=== PATIENT | female | born 1960 | race Caucasian/White ===

== ENCOUNTER 2016-06-28 07:16 | Outpatient (CLI) | payer OTHER | END 2016-06-28 07:17 | disposition home or self-care (01) | DX: Z00.00 Encounter for general adult medical examination without abnormal findings (principal); E55.9 Vitamin D deficiency, unspecified; E78.5 Hyperlipidemia, unspecified ==

== ENCOUNTER 2018-07-02 11:13 | Outpatient (CLI) | payer OTHER ==
--- NOTE | 2018-07-03 09:32 | Mammography Report ---
Reason: Annual Screening Procedure Date: 07/02/2018 Accession Number: [id number] / [id number] Procedure: AWILDA - Screening Mammo Impl w/Velasquez CPT Code: FULL RESULT: EXAM: Screening Mammo Impl w/Velasquez DATE: 07/02/2018 12:06 PM CLINICAL HISTORY: Screening encounter. Family history of breast cancer in the father around the age of 23. History of silicone breast implants around 2003. TECHNIQUE: Bilateral CC and MLO views were obtained in standard and implant displaced fashion. COMPARISON: None FINDINGS: The breasts demonstrate scattered fibroglandular densities bilaterally. Bilateral breast implants are identified, typically benign. No suspicious masses, clustered microcalcifications, or regions of architectural distortion are identified. IMPRESSION: Benign findings RECOMMENDATION: Routine annual screening unless otherwise clinically indicated. BIRADS CATEGORY 2: Benign findings STANDARD QUALIFYING STATEMENTS: 1. This examination was not reviewed with the aid of Computer-Aided Detection (CAD). 2. A negative or benign imaging report should not delay biopsy if clinically suspicious findings are present. Consider surgical consultation if warrented. More than 5% of cancers are not identified by imaging. 3. Dense breasts may obscure an underlying neoplasm. 4. This examination was reviewed with the aid of 3D breast imaging (tomosynthesis).
== END 2018-07-02 11:14 | disposition home or self-care (01) ==
LOC: DI 11:13
PROVIDERS: ATTEND Nurse Practitioner Family
DX: Z12.31 Encounter for screening mammogram for malignant neoplasm of breast (principal); Z98.82 Breast implant status; Z80.3 Family history of malignant neoplasm of breast
CPT/HCPCS: 77063; 77067

== ENCOUNTER 2018-10-30 09:03 | Outpatient (CLI) | payer OTHER ==
[2018-10-30] MEDS ORDERED: GADOBUTROL 7.5 MMOL/7.5 ML VIAL ONE (10:06)
[2018-10-30] MEDS ORDERED: GADOBUTROL 7.5 MMOL/7.5 ML VIAL IVP ONE (10:55)
--- NOTE | 2018-10-31 09:04 | MRI Report ---
Reason: LOCALIZED SWELLING, MASS AND LUMP,PAIN IN LEFT FOR Procedure Date: 10/30/2018 Accession Number: [id number] / [id number] Procedure: MRI - Forearm LT W/WO CPT Code: FULL RESULT: EXAM: LEFT FOREARM MRI WITHOUT AND WITH CONTRAST EXAM DATE: 10/30/2018 11:14 AM. CLINICAL HISTORY: Localized swelling, mass and lump, pain in left forearm. COMPARISON: None. TECHNIQUE: Multiplanar, multisequence T1-weighted and fluid-sensitive sequences of the forearm before and after administration of intravenous contrast. IV contrast: 6 mL Gadavist. Other: None. FINDINGS: Bones: Visualized marrow signal appears normal. No evidence of acute fracture or stress reaction. No destructive bone lesion. Soft tissues: Within the deep anterior soft tissues of the mid forearm there is a solid, well-circumscribed intermediate T1, high T2 signal enhancing mass located between the flexor carpi ulnaris and flexor digitorum superficialis muscles measuring 1.3 x 1.5 cm transverse and 2.2 cm proximal to distal. The posterior margin of the mass abuts the underlying flexor digitorum profundus muscle. Signal within the adjacent musculature appears normal. No additional masses are identified within the field of view. Musculotendinous structures otherwise appear intact. Subcutaneous tissues unremarkable. IMPRESSION: 1. Solid enhancing 1.3 x 1.5 x 2.2 cm soft tissue mass between the flexor carpi ulnaris and flexor digitorum superficialis. Differential considerations include a peripheral nerve sheath tumor such as schwannoma or neurofibroma. Other differential considerations include soft tissue sarcoma or metastatic lesion. RADIA
== END 2018-10-30 09:04 | disposition home or self-care (01) ==
LOC: DI 09:03
PROVIDERS: ATTEND Nurse Practitioner Family
DX: M79.89 Other specified soft tissue disorders (principal); R22.32 Localized swelling, mass and lump, left upper limb; M79.632 Pain in left forearm
CPT/HCPCS: 73220; A9585

== ENCOUNTER 2019-03-05 07:30 | Outpatient (CLI) | payer OTHER ==
[2019-03-05 08:35] LABS: BASOPHILS % (AUTO) 0.6 %; EOSINOPHILS % (AUTO) 1.2 %; HGB - HEMOGLOBIN 13.8 g/dL (12.0-16.0); LYMPHOCYTES # (AUTO) 1.4 10^3/uL (1.5-3.5); LYMPHOCYTES % (AUTO) 40.1 %; MEAN CORPUSCULAR HEMOGLOBIN 31.7 pg (27.0-31.0); MEAN CORPUSCULAR HGB CONC 33.6 g/dL (32.0-36.0); MEAN CORPUSCULAR VOLUME 94.3 fL (81.0-99.0); MEAN PLATELET VOLUME 10.7 fL (7.9-10.8); MONOCYTES # (AUTO) 0.3 10^3/uL (0.0-1.0); MONOCYTES % (AUTO) 8.2 %; NEUTROPHILS # (AUTO) 1.7 10^3/uL (1.5-6.6); NEUTROPHILS % (AUTO) 49.6 %; PLT - PLATELET COUNT 183 10^3/uL (130-450); RED BLOOD COUNT 4.36 10^6/uL (4.20-5.40); RED CELL DISTRIBUTION WIDTH 13.1 % (12.0-15.0); WHITE BLOOD COUNT 3.4 x10^3/uL (4.8-10.8)
[2019-03-05 08:52] LABS: ALBUMIN 4.2 g/dL (3.2-5.5); ALBUMIN/GLOBULIN RATIO 1.5 (1.0-2.2); ALKALINE PHOSPHATASE 43 IU/L (42-121); ALT ALANINE AMINOTRANSFERASE 25 IU/L (10-60); AST ASPARTATE AMINOTRANSFERASE 28 IU/L (10-42); BILIRUBIN,TOTAL 0.8 mg/dL (0.2-1.0); BUN - BLOOD UREA NITROGEN 11 mg/dL (6-20); CALCIUM 8.7 mg/dL (8.5-10.3); CARBON DIOXIDE - CO2 28 mmol/L (21-32); CHLORIDE 97 mmol/L (101-111); CHOL/HDL RATIO 4.3 (<4.4); CHOLESTEROL 240 mg/dL; CREATININE 0.6 mg/dL (0.4-1.0); GFR - MDRD 102 (>89); GLUCOSE 99 mg/dL (70-100); HDL CHOLESTEROL 56 mg/dL; LDL CHOLESTEROL,CALCULATED 167 mg/dL; SODIUM 132 mmol/L (135-145); VLDL CHOLESTEROL 17 mg/dL
[2019-03-05 08:55] LABS: HB2 TOTAL 13.2 g/dL; HEMOGLOBIN A1C 0.55 g/dL
== END 2019-03-05 07:31 | disposition home or self-care (01) ==
LOC: RT 07:30
PROVIDERS: ATTEND Nurse Practitioner Family
DX: Z00.00 Encounter for general adult medical examination without abnormal findings (principal); Z01.818 Encounter for other preprocedural examination; E55.9 Vitamin D deficiency, unspecified; E78.5 Hyperlipidemia, unspecified
CPT/HCPCS: 36415; 80053; 80061; 82306; 82728; 83036; 83721; 85025; 85610; 93005

== ENCOUNTER 2019-03-06 10:27 | Outpatient (CLI) | payer OTHER | END 2019-03-06 10:28 | disposition home or self-care (01) | LOC: RT 10:27 | PROVIDERS: ATTEND Nurse Practitioner Family | DX: Z01.810 Encounter for preprocedural cardiovascular examination (principal) | CPT/HCPCS: 93005 ==

== ENCOUNTER 2019-06-22 09:37 | Outpatient (CLI) | payer OTHER ==
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
== END 2019-06-22 09:38 | disposition home or self-care (01) ==
LOC: DI 09:37
PROVIDERS: ATTEND Nurse Practitioner Family
DX: R05 Cough (principal); R91.8 Other nonspecific abnormal finding of lung field; Z77.22 Contact with and (suspected) exposure to environmental tobacco smoke (acute) (chronic)
CPT/HCPCS: 71046

== ENCOUNTER 2019-07-02 11:57 | Outpatient (CLI) | payer OTHER ==
--- NOTE | 2019-07-03 16:31 | CT Report ---
Reason: COUGH, SOLITARY PULMONARY NODULE Procedure Date: 07/02/2019 Accession Number: [id number] / [id number] Procedure: CT - CHEST WO CPT Code: Final Report FULL RESULT: EXAM: CT CHEST EXAM DATE: 07/02/2019 12:42 PM. CLINICAL HISTORY: Chronic cough x2 months. Right lung nodule seen on x-ray. COMPARISONS: CHEST 2 VIEW 06/22/2019 9:54 AM. TECHNIQUE: Routine helical CT imaging was performed through the chest. IV contrast: None. Reconstructions: Coronal and sagittal. In accordance with CT protocol optimization, one or more of the following dose reduction techniques were utilized for this exam: automated exposure control, adjustment of mA and/or KV based on patient size, or use of iterative reconstructive technique. FINDINGS: Thyroid Gland: Unremarkable as visualized. Lungs/Pleura: Mild subpleural scarring in the posterior right apex (4/44 through 53) likely corresponding to the nodular opacity seen on recent chest radiograph. Linear subpleural scarring or atelectasis in the anteroinferior right middle lobe. Small area of ill-defined peribronchovascular groundglass opacities in the posterior right lower lobe (4/222). No pleural effusion. Heart and Great Vessels: Heart size is normal. No pericardial effusion. No aortic aneurysm. Thoracic Lymph Nodes: No adenopathy. Visualized Upper Abdomen: Unremarkable. Bones: Mild degenerative changes in the lower thoracic spine. No acute bony abnormality. Other: Bilateral breast implants. IMPRESSION: 1. Small area of ill-defined peribronchial vascular ground glass opacities in the posterior right lower lobe, appearance suggesting endobronchial inflammatory/infectious process. 2. Mild subpleural scarring in the posterior right apex likely corresponding to the nodular opacity seen on recent chest radiograph. RADIA
== END 2019-07-02 11:58 | disposition home or self-care (01) ==
LOC: DI 11:57
PROVIDERS: ATTEND Nurse Practitioner Family
DX: R91.1 Solitary pulmonary nodule (principal); R05 Cough; R91.8 Other nonspecific abnormal finding of lung field
CPT/HCPCS: 71250

== ENCOUNTER 2020-08-30 10:15 | Outpatient (CLI) | payer OTHER ==
--- NOTE | 2020-09-01 13:10 | Mammography Report ---
BILATERAL DIGITAL SCREENING MAMMOGRAM 3D/2D WITH AUGMENTATION: 08/30/2020 CLINICAL: Family history of breast cancer. Family history of breast cancer. Comparison is made to exams dated: 07/02/2018 mammogram - [facility], 07/18/2016 [facility], and 06/04/2014 mammogram - [facility]. The tissue of both breas ts is predominantly fatty. Bilateral breast implants are intact. No significant masses, calcifications, or other findings are seen in either breast. There has been no significant interval change. IMPRESSION: NEGATIVE There is no mammographic evidence of malignancy. A 1 year screening mammogram is recommended. This exam was interpreted at Station ID: [id number]. NOTE: For mammograms, a report in lay terms will be sent to the patient. Approximately 15% of breast malignancies will not be visualized mammographically. In the management of a palpable breast mass, a negative mammogram must not discourage biopsy of a clinically suspicious lesion. Electronically Signed By: Pablo Vizcaino acr/penrad:08/31/2020 16:27:10 ACR BI-RADS Category 1: Negative 3341F PARENCHYMAL PATTERN: (F) - The breast(s) demonstrate(s) diffuse fatty replacement. BI-RADS CATEGORY: (1) - 1 RECOMMENDATION: (ANNUAL) - Recommend routine annual screening mammography. [id number] 1 year screening LATERALITY: (B)
== END 2020-08-30 10:16 | disposition home or self-care (01) ==
LOC: DI.S 10:15
PROVIDERS: ATTEND Nurse Practitioner Family
DX: Z12.31 Encounter for screening mammogram for malignant neoplasm of breast (principal); Z80.3 Family history of malignant neoplasm of breast; Z98.82 Breast implant status

== ENCOUNTER 2020-11-27 14:52 | Emergency (ER) | payer OTHER ==
[2020-11-27] MEDS ORDERED: HYDROmorphone 1 MG/ML CARPUJECT IVP STA ×3 (15:06→22:31)
[2020-11-27] MEDS ORDERED: ONDANSETRON 4 MG/2 ML VIAL IVP STA (15:06)
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
[2020-11-27 15:24] LABS: BASOPHILS % (AUTO) 0.3 %; EOSINOPHILS % (AUTO) 0.2 %; HCT - HEMATOCRIT 41.4 % (37.0-47.0); HGB - HEMOGLOBIN 14.2 g/dL (12.0-16.0); LYMPHOCYTES # (AUTO) 1.4 10^3/uL (1.5-3.5); LYMPHOCYTES % (AUTO) 15.5 %; MEAN CORPUSCULAR HEMOGLOBIN 31.7 pg (27.0-31.0); MEAN CORPUSCULAR HGB CONC 34.3 g/dL (32.0-36.0); MEAN CORPUSCULAR VOLUME 92.4 fL (81.0-99.0); MEAN PLATELET VOLUME 10.7 fL (7.9-10.8); MONOCYTES # (AUTO) 0.5 10^3/uL (0.0-1.0); MONOCYTES % (AUTO) 6.1 %; NEUTROPHILS # (AUTO) 6.8 10^3/uL (1.5-6.6); NEUTROPHILS % (AUTO) 76.6 %; PLT - PLATELET COUNT 201 10^3/uL (130-450); RED BLOOD COUNT 4.48 10^6/uL (4.20-5.40); RED CELL DISTRIBUTION WIDTH 12.8 % (12.0-15.0); WHITE BLOOD COUNT 8.9 x10^3/uL (4.8-10.8)
[2020-11-27] MEDS ORDERED: IOPAMIDOL-300 100 ML VIAL ONE (15:25)
[2020-11-27 15:26] LABS: SLIDE REVIEW? Indicated
[2020-11-27 15:39] LABS: ALBUMIN 4.4 g/dL (3.2-5.5); ALKALINE PHOSPHATASE 57 IU/L (42-121); ALT ALANINE AMINOTRANSFERASE 22 IU/L (10-60); AST ASPARTATE AMINOTRANSFERASE 53 IU/L (10-42); BILIRUBIN,TOTAL 1.4 mg/dL (0.2-1.0); BUN - BLOOD UREA NITROGEN 14 mg/dL (6-20); CALCIUM 8.8 mg/dL (8.5-10.3); CARBON DIOXIDE - CO2 22 mmol/L (21-32); CHLORIDE 96 mmol/L (101-111); CREATININE 0.8 mg/dL (0.4-1.0); GFR - MDRD 73 (>89); GLUCOSE 113 mg/dL (70-100); POTASSIUM 4.4 mmol/L (3.5-5.0); SODIUM 131 mmol/L (135-145); TOTAL PROTEIN 7.2 g/dL (6.7-8.2)
[2020-11-27 15:40] LABS: ALBUMIN/GLOBULIN RATIO 1.6 (1.0-2.2); ETOH - ETHANOL < 5.0 mg/dL; LIPASE 30 U/L (22-51)
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
[2020-11-27 17:06] LABS: INR 1.1 (0.8-1.2); PT - PROTHROMBIN TIME 12.3 secs (9.9-12.6)
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
[2020-11-27] MEDS ORDERED: IOPAMIDOL-300 100 ML VIAL IVP ONE (19:40)
[2020-11-27] MEDS ORDERED: KETOROLAC 15 MG/ML VIAL IVP STA (20:32)
[2020-11-27 21:10] LABS: B. PARAPERTUSSIS- RESP PCR PAN NOT DETECTED; B. PERTUSSIS- RESP PCR PANEL NOT DETECTED; C. PNEUMONIAE- RESP PCR PANEL NOT DETECTED; CORONAVIRUS 229E-RESP PCR NOT DETECTED; CORONAVIRUS HKU1-RESP PCR NOT DETECTED; CORONAVIRUS NL63-RESP PCR NOT DETECTED; CORONAVIRUS OC43-RESP PCR NOT DETECTED; HUMAN METAPNEUMOVIRUS NOT DETECTED; INFLUENZA A- RESP PCR PANEL NOT DETECTED; INFLUENZA B - RESP PCR PANEL NOT DETECTED; M. PNEUMONIAE- RESP PCR PANEL NOT DETECTED; PARAINFLUENZA VIRUS 1 NOT DETECTED; PARAINFLUENZA VIRUS 2 NOT DETECTED; PARAINFLUENZA VIRUS 3 NOT DETECTED; PARAINFLUENZA VIRUS 4 NOT DETECTED; RHINOVIRUS/ENTEROVIRUS NOT DETECTED; RSV- RESP PCR PANEL NOT DETECTED; SARS-CoV-2 -RESP PCR PANEL NOT DETECTED
[2020-11-27 22:47] VITALS: BP 142/97
== END 2020-11-27 22:46 | disposition short-term general hospital (02) ==
LOC: ED 14:52
DX: S32.010A Wedge compression fracture of first lumbar vertebra, initial encounter for closed fracture (principal); S60.512A Abrasion of left hand, initial encounter; S20.219A Contusion of unspecified front wall of thorax, initial encounter; V59.88XA Occupant (driver) (passenger) of pick-up truck or van injured in other specified transport accidents, initial encounter; Y93.89 Activity, other specified; Y92.410 Unspecified street and highway as the place of occurrence of the external cause; Z20.822 Contact with and (suspected) exposure to COVID-19
CPT/HCPCS: 0202U; 36415; 70450; 71260; 72125; 73130; 74177; 80053; 80320; 83690; 85025; 85610; 86850; 86900; 86901; 96374; 96375; 96376; 99283; 99285; J1170; Q9967

== ENCOUNTER 2020-11-27 14:52 | Outpatient (CLI) | payer OTHER | END 2020-11-27 14:53 | disposition critical access hospital (66) | LOC: EMS 14:52 | DX: Z04.1 Encounter for examination and observation following transport accident (principal); R07.89 Other chest pain | CPT/HCPCS: A0425; A0429 ==

== ENCOUNTER 2021-10-26 15:19 | Outpatient (CLI) | payer OTHER ==
--- NOTE | 2021-10-27 13:09 | Ultrasound Report ---
PROCEDURE: Heterogeneous appearance INDICATIONS: ABN VAGINAL BLEEDING TECHNIQUE: Real-time scanning was performed of the pelvic organs, with image documentation. Additional endovagi nal scanning was necessary due to incomplete visualization of the adnexal and endometrial structures by transabdominal scanning. COMPARISON: None. FINDINGS: Uterus: Uterus is anteverted and mildly prominent in size at 9.1 x 3.0 x 4.6 cm. The myometrium is heterogeneous. The endometrium measures 2-8 mm in combined thickness. There is a mid posterior focu s of heterogeneous echogenicity appearing intramural measuring 17 x 15 x 17 mm. Calcifications are pr esent. Second focus is in the right posterior intramural region measuring 14 x 14 x 14 mm also with c alcifications. Additional smaller foci are also identified. Ovaries: The right ovary measures 2.4 x 1.3 x 1.4 cm, with a calculated ovarian volume of 2.3 cc. T he left ovary measures 2.4 x 1.1 x 1.5 cm, with a calculated ovarian volume of 2.1 cc. The ovaries h ave a normal sonographic appearance. Less than 12 follicles can be seen in each ovary. No adnexal m asses are seen. Other: No pathologic free abdominal or pelvic fluid. IMPRESSION: Heterogeneous appearance of the uterus with appearance of multiple fibroids. The endometrium has portions appearing mildly prominent. While this could be secondary to visualizati on and/or fibroids, given postmenopausal age and history of bleeding, further evaluation with endomet rial sampling should be obtained, as malignancy cannot be definitively excluded. Reviewed by: Thelma Willard MD on 10/27/2021 1:07 PM PDT Approved by: Thelma Willard MD on 10/27/2021 1:07 PM PDT Station ID: [id number]
== END 2021-10-26 15:20 | disposition home or self-care (01) ==
LOC: DI 15:19
PROVIDERS: ATTEND Nurse Practitioner Family
DX: N85.00 Endometrial hyperplasia, unspecified (principal); D25.1 Intramural leiomyoma of uterus

== ENCOUNTER 2021-11-09 08:04 | Outpatient (CLI) | payer OTHER ==
[2021-11-09 14:57] LABS: ALBUMIN/GLOBULIN RATIO 1.5 (1.0-2.2); ALKALINE PHOSPHATASE 47 IU/L (42-121); ALT ALANINE AMINOTRANSFERASE 23 IU/L (10-60); AST ASPARTATE AMINOTRANSFERASE 28 IU/L (10-42); BILIRUBIN,TOTAL 0.9 mg/dL (0.2-1.0); BUN - BLOOD UREA NITROGEN 14 mg/dL (6-20); CALCIUM 8.7 mg/dL (8.5-10.3); CARBON DIOXIDE - CO2 25 mmol/L (21-32); CHLORIDE 102 mmol/L (101-111); CHOL/HDL RATIO 3.3 (<4.4); CHOLESTEROL 212 mg/dL; CREATININE 0.5 mg/dL (0.4-1.0); GFR - MDRD 125 (>89); GLUCOSE 99 mg/dL (70-100); HDL CHOLESTEROL 64 mg/dL; LDL CHOLESTEROL,CALCULATED 135 mg/dL; LDL/HDL RATIO 2.1 (<4.4); POTASSIUM 3.9 mmol/L (3.5-5.0); SODIUM 133 mmol/L (135-145); TOTAL PROTEIN 6.7 g/dL (6.7-8.2); TRIGLYCERIDES 64 mg/dL; VLDL CHOLESTEROL 13 mg/dL
[2021-11-10 03:09] LABS: HCV AB <0.1 s/co ratio (0.0-0.9)
[2021-11-10 06:10] LABS: HIV SCREEN 4TH GENERATION Non Reactive (Non Reactive)
== END 2021-11-09 08:05 | disposition home or self-care (01) ==
LOC: LAB.S 08:04
PROVIDERS: ATTEND Nurse Practitioner Family
DX: Z00.00 Encounter for general adult medical examination without abnormal findings (principal); Z13.6 Encounter for screening for cardiovascular disorders; Z13.1 Encounter for screening for diabetes mellitus
CPT/HCPCS: 36415; 80053; 80061; 83721; 86803; 87389

== ENCOUNTER 2022-01-18 09:43 | Outpatient (CLI) | payer OTHER ==
--- NOTE | 2022-01-19 12:54 | Mammography Report ---
BILATERAL DIGITAL SCREENING MAMMOGRAM 3D/2D WITH AUGMENTATION: 01/18/2022 CLINICAL: Routine screening. Family history of breast cancer. Comparison is made to exams dated: 08/30/2020 mammogram and 07/02/2018 mammogram - [facility]. There are scattered areas of fibroglandular density in both breasts (category b / 25%-50% glandular t issue). Bilateral breast implants are stable and intact. No significant masses, calcifications, or other findings are seen in either breast. There has been no significant interval change. IMPRESSION: NEGATIVE There is no mammographic evidence of malignancy. A 1 year screening mammogram is recommended. Based on the Tyrer Cuzick model (a risk assessment model) the patients lifetime risk is 11.8% and he r 10 year risk is 5.3%. According to the ACR, ACS, and NCCN guidelines, an annual breast MRI exam tahmina ng with mammogram is recommended if the patients lifetime risk is 20% or greater. This exam was interpreted at Station ID: [id number]. NOTE: For mammograms, a report in lay terms will be sent to the patient. Approximately 15% of breast malignancies will not be visualized mammographically. In the management of a palpable breast mass, a negative mammogram must not discourage biopsy of a clinically suspicious lesion. Electronically Signed By: Teodora butcher/lisa:01/18/2022 14:12:57 ACR BI-RADS Category 1: Negative 3341F PARENCHYMAL PATTERN: (A) - The breast(s) demonstrate(s) scattered fibroglandular densities. BI-RADS CATEGORY: (1) - 1 RECOMMENDATION: (ANNUAL) - Recommend routine annual screening mammography. [id number] 1 year screening LATERALITY: (B)
== END 2022-01-18 09:44 | disposition home or self-care (01) ==
LOC: DI.S 09:43
PROVIDERS: ATTEND Nurse Practitioner Family
DX: Z12.31 Encounter for screening mammogram for malignant neoplasm of breast (principal); Z80.3 Family history of malignant neoplasm of breast; Z98.82 Breast implant status

== ENCOUNTER 2022-08-29 17:54 | Outpatient (CLI) | payer OTHER | END 2022-08-29 17:55 | disposition critical access hospital (66) | LOC: EMS 17:54 | DX: S81.012A Laceration without foreign body, left knee, initial encounter (principal); W19.XXXA Unspecified fall, initial encounter; W22.8XXA Striking against or struck by other objects, initial encounter | CPT/HCPCS: A0425; A0429 ==

== ENCOUNTER 2022-08-29 18:27 | Emergency (ER) | payer OTHER ==
[2022-08-29] MEDS ORDERED: LIDOCAINE MPF 2%-EPI 1:200000 20 ML VIAL ONE (18:37)
[2022-08-29] MEDS ORDERED: HYDROmorphone 2 MG/ML VIAL ONE (18:42)
[2022-08-29] MEDS ORDERED: HYDROmorphone 1 MG/ML CARPUJECT IVP STA (18:44)
[2022-08-29] MEDS ORDERED: ceFAZolin 1 GM in SODIUM CHLORIDE 0.9% MINIBAG 100 ML IV STA (18:44)
--- NOTE | 2022-08-29 18:47 | ED Physician Documentation ---
PD HPI LOWER EXT INJURY - Stated complaint Stated Complaint: L KNEE LAC - Chief complaint Chief Complaint: Trauma Ext - History obtained from History obtained from: Patient, EMS - History of Present Illness PD HPI LOW EXT INJURY LOCATION: Left - Additional information Additional information: 61-year-old generally healthy woman who is up-to-date on tetanus sustained a large laceration just inferior to the left knee on a broken plant pot at home just prior to arrival. PD PAST MEDICAL HISTORY - Past Medical History Cardiovascular: None Respiratory: None Endocrine/Autoimmune: None GI: None : None HEENT: None Psych: None Musculoskeletal: None Derm: Eczema - Past Surgical History General: Appendectomy Cardiovascular: Valve replacement, Pacemaker - Present Medications Home Medications: Ambulatory Orders Medication Instructions Recorded Confirmed HYDROcod/ACETAM 5/325 [Hardwick 5/325] 1 - 2 tab PO Q6H PRN #15 tablet 08/29/22 cephALEXin [Keflex] 500 mg PO Q6H #28 cap 08/29/22 - Allergies Allergies/Adverse Reactions: Allergies Allergy/AdvReac Type Severity Reaction Status Date / Time No Known Drug Allergies Allergy Verified 08/29/22 18:42 - Social History Does the pt smoke?: No Smoking Status: Never smoker PD ED PE NORMAL - Vitals Vital signs reviewed: Yes - General General: Alert and oriented X 3, No acute distress - Neck Neck: Supple, no meningeal sign, No bony TTP - Back Back: No CVA TTP, No spinal TTP - Extremities Extremities: Other (There is a very large laceration that starts inferior to the left patella and run circumferentially around medially almost to the popliteal fossa. There is a large muscle belly exposed and cut with active hemorrhage. No clear distal neurovascular compromise.) - Neuro Neuro: Alert and oriented X 3, Normal speech Results - Vitals Vitals: Vital Signs - 24 hr 08/29/22 08/29/22 08/29/22 18:37 18:43 19:55 Heart Rate 106 H 105 H 97 Respiratory 19 16 20 Rate Blood Pressure 142/101 H 110/79 120/83 H O2 Saturation 100 95 99 08/29/22 20:31 Heart Rate 95 Respiratory 19 Rate Blood Pressure 121/89 H O2 Saturation 93 Oxygen O2 Source Room air - Labs Labs: Laboratory Tests 08/29/22 08/29/22 08/29/22 18:57 18:57 18:57 WBC 8.1 RBC 3.89 L Hgb 12.2 Hct 37.0 MCV 95.1 MCH 31.4 H MCHC 33.0 RDW 13.3 Plt Count 204 MPV 11.0 H Neut # (Auto) 5.6 Lymph # (Auto) 1.9 Ector # (Auto) 0.5 Eos # (Auto) 0.1 Baso # (Auto) 0.0 Absolute Nucleated RBC 0.00 Nucleated RBC % 0.0 PT INR Sodium 138 Potassium 3.6 Chloride 103 Carbon Dioxide 24 Anion Gap 11.0 BUN 20 Creatinine 0.6 Estimated GFR (MDRD) 101 Glucose 164 H Calcium 8.4 L Blood Type A POSITIVE Antibody Screen NEGATIVE 08/29/22 18:57 WBC RBC Hgb Hct MCV MCH MCHC RDW Plt Count MPV Neut # (Auto) Lymph # (Auto) Ector # (Auto) Eos # (Auto) Baso # (Auto) Absolute Nucleated RBC Nucleated RBC % PT 11.8 INR 1.1 Sodium Potassium Chloride Carbon Dioxide Anion Gap BUN Creatinine Estimated GFR (MDRD) Glucose Calcium Blood Type Antibody Screen - Rads (name of study) L knee XR Relevant Findings:: Final report received, EMP independent interpretation of test Procedures - Laceration (location) Left knee Length in cm: 15 Wound type: Linear, Into muscle Neurovascular status: Sensory intact, Motor intact, Vascular intact Anesthesia: Lidocaine 2% with epi Wound preparation: Irrigated copiously NS Skin layer closure: Alpha Other: Tetanus UTD PD Medical Decision Making - ED course ED course: 61-year-old woman seen emergently after arrival by EMS because she is hemorrhaging from a large knee laceration. A tourniquet was placed on the thigh and then she was locally infiltrated with lidocaine with epinephrine. The wound was irrigated and then the skin urgently closed with earline. Subsequently I felt she may need a more definitive repair and I spoke with our orthopedic surgeon, Dr Cabrera who will see her. The orthopedic surgeon saw her and feels that she can be safely discharged without further intervention at this point. He put her in a splint and would like her on Keflex. He will see her in 2 days in follow-up. I did clarify with Dr Cabrera the x-ray showed air in the joint and he still felt that conservative management was appropriate. Departure - Departure Disposition: 01 Home, Self Care Clinical Impression: Laceration of left knee Condition: Good Record reviewed to determine appropriate education?: Yes Instructions: ED Laceration Ext Sutr Stap Tape Follow-Up: Orthopedic Care [Provider Group] Prescriptions: cephALEXin [Keflex] 500 mg PO Q6H #28 cap HYDROcod/ACETAM 5/325 [Hardwick 5/325] 1 - 2 tab PO Q6H PRN #15 tablet PRN Reason: Pain Comments: Keep the splint on and dry. Dr Cabrera would like to see you in 2 days for very close recheck. Call his office tomorrow morning for an appointment. They should be aware of your case since he did see you today. Elevate is much as possible. Generally take it easy. I sent your prescriptions electronically to [facility] in [place]. I am prescribing a short course of narcotic pain medication for you. These are potentially dangerous and addictive medications that should be used carefully. These medications may constipate you. Take an rejs-dft-dlsgdsl stool softener (docusate) twice daily with plenty of water while taking these medications. If you go 24 hours without a bowel movement, take qmzl-vuv-mdawfqk miralax, per package instructions. Do not drink or drive while taking these medications. If you received narcotic or sedating medications while in the emergency department, do not drive for 24 hours. Store this medication in a safe, secure place and out of reach of children. It is a violation of federal law to give or sell this medication to another person or to use in a manner other than prescribed. The ED will not refill narcotic prescriptions, including prescriptions lost or stolen. To dispose of unwanted medications: 1. [facility] at [address] in [place] has a medication drop box. They accept prescription medications (in pill form) Sunday through Sunday 9:00 a.m. to 5:00 p.m. 2. [facility] [employer] accepts prescription medications (in pill form only) for disposal year round. Call for more information. 3. Contact the [facility] for the next [facility] sponsored prescription drug collection event. , [phone], or [phone]; Note that many narcotic pain relievers also contain Tylenol/acetaminophen. Please ensure that your total dose of acetaminophen from all sources does not exceed 3 g (3000 mg) per day.
[2022-08-29 19:05] LABS: BASOPHILS % (AUTO) 0.5 %; EOSINOPHILS # (AUTO) 0.1 10^3/uL (0.0-0.7); EOSINOPHILS % (AUTO) 0.6 %; HGB - HEMOGLOBIN 12.2 g/dL (12.0-16.0); LYMPHOCYTES # (AUTO) 1.9 10^3/uL (1.5-3.5); LYMPHOCYTES % (AUTO) 23.2 %; MEAN CORPUSCULAR HEMOGLOBIN 31.4 pg (27.0-31.0); MEAN CORPUSCULAR VOLUME 95.1 fL (81.0-99.0); MONOCYTES # (AUTO) 0.5 10^3/uL (0.0-1.0); MONOCYTES % (AUTO) 5.8 %; NEUTROPHILS # (AUTO) 5.6 10^3/uL (1.5-6.6); NEUTROPHILS % (AUTO) 69.7 %; PLT - PLATELET COUNT 204 10^3/uL (130-450); RED BLOOD COUNT 3.89 10^6/uL (4.20-5.40); RED CELL DISTRIBUTION WIDTH 13.3 % (12.0-15.0); WHITE BLOOD COUNT 8.1 x10^3/uL (4.8-10.8)
[2022-08-29 19:10] LABS: INR 1.1 (0.8-1.2); PT - PROTHROMBIN TIME 11.8 secs (9.9-12.6)
[2022-08-29 19:12] LABS: CALCIUM 8.4 mg/dL (8.5-10.3); CREATININE 0.6 mg/dL (0.4-1.0); POTASSIUM 3.6 mmol/L (3.5-5.0)
--- OUTSIDE RECORDS SUMMARY | 2022-08-29 19:41 | EXTERNAL MEDICAL SUMMARY RPT | Continuity of Care Document ---
:1960 Author Organization [facility] Address [address] [place] [address] Phone Care Team Providers Name Role Phone Unavailable Unavailable Unavailable Roxy Mazariegos Pa-C Unavailable Unavailable Allergies No information. Encounters No information. Functional Status No information. Immunizations No information. Medications date description facility 2022-08-29 00:00 POLYMYXIN B-TRIMETHOPRIM [facility] 2022-08-29 00:00 POLYMYXIN B-TRIMETHOPRIM [facility] 2022-08-29 00:00 PAROXETINE HCL [facility] 2022-08-29 00:00 POLYMYXIN B-TRIMETHOPRIM [facility] 2022-08-29 00:00 PAROXETINE HCL [facility] 2022-08-29 00:00 PAROXETINE HCL [facility] 2022-08-29 00:00 PAROXETINE HCL [facility] 2022-08-29 00:00 POLYMYXIN B-TRIMETHOPRIM [facility] Problems date description facility 2022-08-29 00:00 Laceration of lower leg without [facility] & foreign body [facility] 2022-08-29 00:00 Laceration without foreign body, [facility] & left lower leg, subsequent Ancillary Ser vice[facility] encounter Procedures date description facility 2022-08-29 00:00 Visit Code Hold [facility] Results/Labs No information. Social History date description facility 2022-08-29 00:00 Never smoker [facility] Vital Signs date measurement value units 2022-08-29 00:00 BMI 22.39 kg/m2 2022-08-29 00:00 BP_diastolic 100 mmHg 2022-08-29 00:00 BP_systolic 131 mmHg 2022-08-29 00:00 heart_rate 88 /min 2022-08-29 00:00 height_metric 163.83 cm 2022-08-29 00:00 height_standard 64.5 in 2022-08-29 00:00 respiration_rate 16 /min 2022-08-29 00:00 temperature_metric 36.39 C 2022-08-29 00:00 temperature_standard 97.5 F 2022-08-29 00:00 weight_metric 59.87 kg 2022-08-29 00:00 weight_standard 132 lb
[2022-08-29] MEDS ORDERED: CEPHALEXIN 250 MG Prepack 8 CAP BOTTLE PO STA (20:08)
[2022-08-29] MEDS ORDERED: HYDROcod/ACET 5/325 Prepack 4 PO STA (20:08)
--- NOTE | 2022-08-29 20:16 | CONSULTATION NOTE ---
Referring Provider Name of Referring Provider:: Dr. Pettit Consult Date: 08/29/22 History of Present Illness - History Obtained From History obtained from: patient Exam Limitations: clinical condition - History of Present Illness HPI Comment/Other: This is a relatively healthy 61-year-old woman who was carrying a pot without any soil. While carrying this pot outdoors, she stumbled and fell with the pot. The chair caught a pot broke and she landed on the broken pot, striking her left knee. She sustained a sharp laceration over the anteromedial left knee and came to the emergency room shortly after the injury. Her tetanus status is up-to-date. She says there was not much blood coming from the incision initially but there was some that started to come from the laceration within 30 minutes. She seems to have good neurovascular function distal to the laceration. She denies previous problems with her left knee. She was able to bear weight on the left leg after injury. She is accompanied by a friend. She lives in [place]. She is . She is relatively active and healthy, no major medical problems or medications. She denies allergies to medications she is a non-smoker, denies diabetes. She denies chest pain, shortness of breath, dizziness, syncope, nausea or vomiting.She had the laceration repaired in the emergency room by emergency room physician. She seems to be doing well and her bleeding seems to be fairly well controlled with a Jamie wrap sterile gauze dressing following staple closure of her incision. Her vital signs seem to remain stable History - Past Medical History Cardiovascular: reports: None Respiratory: reports: None Endocrine/Autoimmune: reports: None GI: reports: None : reports: None HEENT: reports: None Psych: reports: None Musculoskeletal: reports: None Derm: reports: Eczema - Past Surgical History General: reports: Appendectomy Cardiovascular: reports: Valve replacement, Pacemaker Meds/Allgy - Home Medications Home Medications: Ambulatory Orders Medication Instructions Recorded Confirmed HYDROcod/ACETAM 5/325 [[place]org 5/325] 1 - 2 tab PO Q6H PRN #15 tablet 08/29/22 cephALEXin [Keflex] 500 mg PO Q6H #28 cap 08/29/22 - Allergies Allergies/Adverse Reactions: Allergies Allergy/AdvReac Type Severity Reaction Status Date / Time No Known Drug Allergies Allergy Verified 08/29/22 18:42 Exam - Vital Signs Vital Signs: Vital Signs x48h Pulse Resp BP Pulse Ox 08/29/22 19:55 97 20 120/83 H 99 08/29/22 18:43 105 H 16 110/79 95 08/29/22 18:37 106 H 19 142/101 H 100 - Physical Exam General Appearance: positive: Mild distress Peripheral Pulses: positive: 2+ Neurologic/Psychiatric: positive: Oriented x3, Motor nml, Sensation nml, Mood/affect nml Comments/Other: The left knee shows a transverse laceration beginning just inferior and medial to the patellar tendon, below the joint line and extending transversely to the medial aspect of the left knee. Laceration is sharp has been well opposed by staple skin fixation. The laceration does not extend into the popliteal fossa. Her compartments are soft to the left leg. There is minimal signs of bleeding from the edges of the repaired laceration. The knee was fully undressed; previous dressings removed to assess bleeding and to assess laceration. The knee is grossly stable. The extensor mechanism is intact. She can do a straight leg raise actively. She has intact sensation to the leg. Her pulses are intact. There is no ischemia to the left foot. The patella is nontender, no focal tenderness about proximal tibia or distal femur. There is localized soft tissue swelling about the laceration. Conclusion and Plan - Lab Results Laboratory Results 08/29/22 18:57: PT 11.8, INR 1.1 08/29/22 18:57: Blood Type A POSITIVE, Antibody Screen NEGATIVE 08/29/22 18:57: Sodium 138, Potassium 3.6, Chloride 103, Carbon Dioxide 24, Anion Gap 11.0, BUN 20, Creatinine 0.6, Estimated GFR (MDRD) 101, Glucose 164 H, Calcium 8.4 L 08/29/22 18:57: WBC 8.1, RBC 3.89 L, Hgb 12.2, Hct 37.0, MCV 95.1, MCH 31.4 H, MCHC 33.0, RDW 13.3, Plt Count 204, MPV 11.0 H, Neut # (Auto) 5.6, Lymph # (Auto) 1.9, Hamilton # (Auto) 0.5, Eos # (Auto) 0.1, Baso # (Auto) 0.0, Absolute Nucleated RBC 0.00, Nucleated RBC % 0.0 - Diagnosis Diagnosis: 15 cm laceration left knee - Consultation Note Consultation Note: Even though laceration may have entered knee joint Laceration is clean, well opposed, bleeding appears to be well controlled, vital signs stable, n eurovascular intact, compartment soft and She has been given intravenous cefazolin, 1 g. in a timely fashion. Her tetanus status is up-to-date. Her laceration has been repaired by emergency room physician with skin earline. - Plan Plan: The wound has been irrigated and repaired, bleeding relatively well controlled. The skin was cleansed, sterile Vaseline gauze applied to the incision, gauze, well-padded long leg splint applied to hold the knee in about 30 degrees of flexion. She will be prescribed Keflex, has been instructed in elevation of left knee above heart level, nonweightbearing with walker that she has at home, ice pack to left knee, minimal activity, drink plenty of fluids, take Tylenol and/or ibuprofen as needed for pain. I would like her rechecked at my office this . I did discuss potential complications of laceration including some decreased sensation distal to the laceration although she seems to have relatively good se nsation now. There is a risk of infection which is her main issue. She has been started on Ancef, had wound irrigation and wound closure promptly. Her knee will be immobilized. Her other problem is bleeding that can recur. The bleeding has been controlled by a well-padded splint to provide some compression and immobilization. She has a walker to reduce weight on the left leg. If she develops any signs of active bleeding, increasing pain, numbness; she is to call our office or return to the emergency room immediately. Otherwise, she should be rechecked this morning at our office.A teach back was performed.
--- NOTE | 2022-08-29 20:40 | XRAY Report ---
PROCEDURE: Knee 3 View LT INDICATIONS: knee inj TECHNIQUE: 3 views of the left knee were acquired. COMPARISON: None. FINDINGS: Bones: No fractures or dislocations. There is mild joint space narrowing in the medial compartment. No suspicious bony lesions. Soft tissues: There is a moderate knee joint effusion with gas in the joint space. There is soft tiss ue laceration medially with associated overlying skin earline. No suspicious soft tissue calcificatio ns or masses. IMPRESSION: 1. Moderate joint effusion with gas in the joint space which may reflect extension from a soft tissue laceration. Joint space infection cannot be excluded. 2. No fracture or dislocation. Reviewed by: Alexsander Boggs MD on 08/29/2022 8:39 PM PDT Approved by: Alexsander Boggs MD on 08/29/2022 8:39 PM PDT Station ID: [id number]
[2022-08-29 21:19] VITALS: BP 122/88
== END 2022-08-29 20:58 | disposition home or self-care (01) ==
LOC: EDUNIT# → ED 18:27
DX: S81.012A Laceration without foreign body, left knee, initial encounter (principal); W26.8XXA Contact with other sharp object(s), not elsewhere classified, initial encounter
CPT/HCPCS: 12005; 36415; 73562; 80048; 85025; 85610; 86850; 86900; 86901; 96365; 96375; 99284; J1170

== ENCOUNTER 2023-05-09 15:23 | Outpatient (CLI) | payer OTHER ==
--- NOTE | 2023-05-11 09:45 | Mammography Report ---
BILATERAL DIGITAL SCREENING MAMMOGRAM 3D/2D WITH AUGMENTATION: 05/09/2023 CLINICAL: Routine screening. Family history of breast cancer. Comparison is made to exams dated: 01/18/2022 mammogram, 08/30/2020 mammogram, 07/02/2018 mammogram - [facility], 07/18/2016 mammogram, and 06/04/2014 mammogram - [facility]. There are scattered areas of fibroglandular density in both breasts (category b / 25%-50% glandular t issue). Bilateral breast implants are stable and intact. No significant masses, calcifications, or other findings are seen in either breast. IMPRESSION: BENIGN There is no mammographic evidence of malignancy. A 1 year screening mammogram is recommended. Based on the Tyrer Cuzick model (a risk assessment model) the patients lifetime risk is 11.2% and he r 10 year risk is 5.1%. According to the ACR, ACS, and NCCN guidelines, an annual breast MRI exam tahmina ng with mammogram is recommended if the patients lifetime risk is 20% or greater. This exam was interpreted at Station ID: [id number]. NOTE: For mammograms, a report in lay terms will be sent to the patient. Approximately 15% of breast malignancies will not be visualized mammographically. In the management of a palpable breast mass, a negative mammogram must not discourage biopsy of a clinically suspicious lesion. Electronically Signed By: Myriam De La Rosa M.D., PH.D eb/lisa:05/10/2023 15:54:19 letter sent: No_Letter ACR BI-RADS Category 2: Benign Finding(s) 3342F PARENCHYMAL PATTERN: (A) - The breast(s) demonstrate(s) scattered fibroglandular densities. BI-RADS CATEGORY: (2) - 2 Mammogram [id number] 1 year screening LATERALITY: (B)
== END 2023-05-09 15:24 | disposition home or self-care (01) ==
LOC: DI.S 15:23
PROVIDERS: ATTEND Internal Medicine
DX: Z12.31 Encounter for screening mammogram for malignant neoplasm of breast (principal); Z80.3 Family history of malignant neoplasm of breast; R92.323 Mammographic fibroglandular density, bilateral breasts; Z98.82 Breast implant status

== ENCOUNTER 2023-05-10 07:29 | Outpatient (CLI) | payer OTHER ==
[2023-05-10 14:37] LABS: BASOPHILS % (AUTO) 0.6 %; EOSINOPHILS % (AUTO) 0.6 %; HCT - HEMATOCRIT 41.2 % (37.0-47.0); HGB - HEMOGLOBIN 13.1 g/dL (12.0-16.0); LYMPHOCYTES # (AUTO) 1.5 10^3/uL (1.5-3.5); LYMPHOCYTES % (AUTO) 31.8 %; MEAN CORPUSCULAR HEMOGLOBIN 28.9 pg (27.0-31.0); MEAN CORPUSCULAR HGB CONC 31.8 g/dL (32.0-36.0); MEAN CORPUSCULAR VOLUME 90.9 fL (81.0-99.0); MEAN PLATELET VOLUME 12.1 fL (7.9-10.8); MONOCYTES # (AUTO) 0.4 10^3/uL (0.0-1.0); MONOCYTES % (AUTO) 7.8 %; NEUTROPHILS # (AUTO) 2.8 10^3/uL (1.5-6.6); PLT - PLATELET COUNT 188 10^3/uL (130-450); RED BLOOD COUNT 4.53 10^6/uL (4.20-5.40); RED CELL DISTRIBUTION WIDTH 15.7 % (12.0-15.0); WHITE BLOOD COUNT 4.8 x10^3/uL (4.8-10.8)
[2023-05-10 15:39] LABS: ALBUMIN 4.3 g/dL (3.2-5.5); ALBUMIN/GLOBULIN RATIO 1.8 (1.0-2.2); BILIRUBIN,TOTAL 0.7 mg/dL (0.2-1.0); CREATININE 0.6 mg/dL (0.6-1.3); POTASSIUM 4.2 mmol/L (3.5-4.5); TOTAL PROTEIN 6.7 g/dL (6.4-8.9)
[2023-05-10 16:08] LABS: THYROID STIMULATING HORMONE 1.85 uIU/mL (0.34-5.60)
[2023-05-10 16:13] LABS: FERRITIN 8.1 ng/mL (11.0-306.8)
[2023-05-10 20:27] LABS: ESTIMATED AVERAGE GLUCOSE 128 mg/dL (70-100); HEMOGLOBIN A1c% 6.1 % (4.27-6.07)
== END 2023-05-10 07:30 | disposition home or self-care (01) ==
LOC: LAB.S 07:29
PROVIDERS: ATTEND Internal Medicine
DX: M47.812 Spondylosis without myelopathy or radiculopathy, cervical region (principal); R53.83 Other fatigue; D64.9 Anemia, unspecified; D25.9 Leiomyoma of uterus, unspecified; F32.A Depression, unspecified
CPT/HCPCS: 36415; 80053; 82306; 82607; 82728; 83036; 84443; 85025

== ENCOUNTER 2023-07-25 09:34 | Day surgery (SDC) | payer OTHER ==
--- NOTE | 2023-07-25 09:37 | HISTORY & PHYSICAL EXAMINATION ---
PMH/PSH - Past Medical History Cardiovascular: positive: None Respiratory: positive: None Endocrine/Autoimmune: positive: None GI: positive: None : positive: None HEENT: positive: None Psych: positive: None Musculoskeletal: positive: None Derm: positive: Eczema MRSA Hx?: No - Past Surgical History General: positive: Appendectomy Ortho: positive: Arthroscopic surgery /[employer]: positive: Breast implants Cardiovascular: Social & Family Hx - Social History Does the pt smoke?: No Smoking Status: Never smoker Substance Use and Type: CBD oil / Products, Other Meds/Allgy - Home Medications Home Medications: Ambulatory Orders Medication Instructions Recorded Confirmed Progesterone, Micronized 100 mg PO DAILY 07/24/23 07/24/23 [Prometrium] - Allergies Allergies/Adverse Reactions: Allergies Allergy/AdvReac Type Severity Reaction Status Date / Time No Known Drug Allergies Allergy Verified 07/25/23 09:59 Impression/Plan - Problem List Problem List: Pre-op H&P I am asked to see Chana for a screening colonoscopy examination. GI symptoms: None Family history of colon cancer: No Family history of colon polyps: No Personal history of colon polyps: No Last colonoscopy examination: 10-12 years ago Anticoagulant use: None this week The Past Family, Social and Personal History has been reviewed with the patient. ROS Denies fevers, chills, night sweats, shortness of breath, chest pain, change in the color of skin or urine, diarrhea, constipation, hematemesis, hematochezia, headache, visual changes, muscle aches. PE VSS, Afeb HEENT: Pupils equal, round and reactive to light, sclera anicteric, normal hearing, oral mucous membranes moist and without lesions NECK: Supple without lymphadenopathy, thyromegaly or carotid bruits LUNGS: Clear to auscultation without wheezing HEART: NSR without murmurs CHEST: Equal and symmetric expansion, no rib pain ABD: Soft, nontender, no hepatosplenomegaly, no hernias GROIN: No hernias or lymphadenopathy EXTREMITIES: Normal neuro and muscular exam SKIN: Anicteric Radiologic Studies N/A Assessment Request for a screening colonoscopy examination. Plan Screening colonoscopy under sedation through the Day Surgery admission protocol at [facility]. Consent: Chana has been counseled for the procedure, it's indications, risks, benefits and expected outcome as well as alternative therapies. We specifically discussed risks associated with anesthesia and insertion of the endoscope into the large intestine which includes bleeding and injury to the colon which may require surgical intervention. Chana understands, agrees, and consents to the proposed operative strategy and requests that we proceed with the procedure as outlined in our discussion. Jay Flood MD, [facility] General Surgery Service
[2023-07-25] MEDS: LACTATED RINGERS 1,000 ML IV ONE ×2 (09:48→12:09)
--- NOTE | 2023-07-25 10:33 | ANESTHESIA ---
Pre-Anesthesia VS, & Labs - Diagnosis SCREENING - Procedure COLONOSCOPY Vital Signs: Temp Pulse Resp BP Pulse Ox O2 Flow Rate 36.5 C 68 8 L 144/94 H 100 07/25/23 09:58 07/25/23 09:58 07/25/23 09:58 07/25/23 09:58 07/25/23 09:58 Height: 5 ft 4 in Weight (kg): 57 kg Body Mass Index: 21.5 BMI Classification: Normal - NPO Last Fluid Intake: O600 - Is Patient ?: No (POST MENOPAUSAL) Home Medications and Allergies Home Medications: Ambulatory Orders Progesterone, Micronized [Prometrium] 100 mg PO DAILY 07/24/23 Progesterone, Micronized [Prometrium] 100 mg PO DAILY 07/24/23 Allergies/Adverse Reactions: Allergies Allergy/AdvReac Type Severity Reaction Status Date / Time No Known Drug Allergies Allergy Verified 07/25/23 09:59 Anes History & Medical History - Anesthetic History Anesthesia Complications: reports: No previous complications - Medical History Cardiovascular: reports: None Pulmonary: reports: None Gastrointestinal: reports: None Urinary: reports: None Musculoskeletal: reports: None Endocrine/Autoimmune: reports: None Skin: reports: Eczema Smoking Status: Never smoker Psychosocial: reports: No issues indicated - Surgical History General: reports: Appendectomy Cardiothoracic: Gynecologic: reports: Breast implants Orthopedic: reports: Arthroscopic surgery, Spine surgery, Other Results - EKG Results EKG Comparison: Normal EKG Exam General: Alert Dental: WNL Mouth Openin Fingerbreadth Neck Mobility: Normal Mallampati classification: II Thyromental Distance: less than 4 cm Plan Anesthesia Type: Total IV Consent for Procedure(s) Verified and Reviewed: Yes Code Status: Attempt Resuscitation ASA classification: 1-Healthy patient Is this case an emergency?: No
[2023-07-25] MEDS ORDERED: PROPOFOL 500 MG/50 ML 500 MG/50 ML VIAL ONE (11:04)
[2023-07-25] MEDS ORDERED: LIDOCAINE-MPF 2% 5 ML VIAL ONE (11:33)
[2023-07-25 12:40] VITALS: O2SAT 100
[2023-07-25 12:50] VITALS: BP 142/89
--- NOTE | 2023-07-25 15:07 | ANESTHESIA POST OP EVALUATION ---
Anesthesia Post Eval - Post Anesthesia Eval Vitals: Last Vital Signs Temp 36.6 C 07/25/23 12:09 Pulse 67 07/25/23 12:41 Resp 18 07/25/23 12:41 BP 142/89 H 07/25/23 12:41 Pulse Ox 100 07/25/23 12:41 O2 Flow Rate CV Function Including HR & BP: Stable Pain Control: Satisfactory Nausea & Vomiting: Negative Mental Status: Baseline Respiratory Status: Airway Patent Hydration Status: Satisfactory Anesthesia Complications: None
== END 2023-07-25 09:35 | disposition home or self-care (01) ==
LOC: SDS 09:34
PROVIDERS: ATTEND Surgery
PROC: 0DBP8ZX Excision of Rectum, Via Natural or Artificial Opening Endoscopic, Diagnostic (ICD-10-PCS; principal; 2023-07-25 10:45)
DX: Z12.11 Encounter for screening for malignant neoplasm of colon (principal); D12.8 Benign neoplasm of rectum; K64.8 Other hemorrhoids; K57.30 Diverticulosis of large intestine without perforation or abscess without bleeding
CPT/HCPCS: 45380; J7120